=== PATIENT | female | born 1965 | race Native Hawaiian/Other Pacific Islander ===

== ENCOUNTER 2020-05-14 18:03 | Inpatient (IN) | payer OTHER ==
[~2020-05-14] VITALS: Ht 170.2 cm; Wt 115.7 kg
[2020-05-14 18:07] VITALS: BP 164/80; TEMP 102.1
[2020-05-14 19:28] LABS: PLATELET COUNT 224 K/uL (152-353)
[2020-05-14 19:40] LABS: POTASSIUM 4.1 mmol/L (3.6-5.2)
[2020-05-14 20:36] VITALS: BP 134/80; TEMP 99.2
[2020-05-15 00:40] VITALS: BP 123/70; TEMP 98.3; Ht 170.2 cm; Wt 115.7 kg
[2020-05-15 04:00] VITALS: BP 131/66; TEMP 98.9
[2020-05-15 08:00] VITALS: BP 143/67; TEMP 102.4
[2020-05-15 12:00] VITALS: BP 121/64; TEMP 99.2
[2020-05-15 16:00] VITALS: BP 166/73; TEMP 101.6
[2020-05-15] MEDS ORDERED: DIOVAN HCT320 MG/25 PO (16:44)
[2020-05-15] MEDS ORDERED: SERTRALINE HYD100 MG PO (16:45)
[2020-05-15] MEDS ORDERED: GLIM4TAB PO (16:45)
[2020-05-15] MEDS ORDERED: EUTHYROX50 MCG PO (16:46)
[2020-05-15] MEDS ORDERED: METFTAB PO (16:47)
[2020-05-15] MEDS ORDERED: VICTOZA18 MG/3 ML SC (16:47)
[2020-05-15] MEDS ORDERED: EZET10TA13 (16:51)
[2020-05-15] MEDS ORDERED: SIMV40TA57 (16:53)
[2020-05-15] MEDS ORDERED: NITROFURANTOIN100 M1 PO (16:54)
[2020-05-15 20:15] VITALS: BP 141/65; TEMP 98.8
[2020-05-16] VITALS: BP 149/67; TEMP 100.3
[2020-05-16 04:09] VITALS: BP 148/68; TEMP 101.4
[2020-05-16 04:29] LABS: PLATELET COUNT 165 K/uL (152-353)
[2020-05-16 05:27] LABS: POTASSIUM 3.5 mmol/L (3.6-5.2)
[2020-05-16 08:00] VITALS: BP 120/54; TEMP 98.1
[2020-05-16 12:00] VITALS: BP 140/69; BP 169/77; TEMP 98.1; TEMP 98.5
[2020-05-16 16:00] VITALS: BP 142/68; TEMP 100.3
[2020-05-16 20:00] VITALS: BP 136/65; TEMP 98.4
[2020-05-17] VITALS: BP 127/58; TEMP 98.4
[2020-05-17 03:58] VITALS: BP 129/66; TEMP 98.5
[2020-05-17 05:42] LABS: PLATELET COUNT 185 K/uL (152-353)
[2020-05-17 05:58] LABS: POTASSIUM 3.1 mmol/L (3.6-5.2)
[2020-05-17 08:00] VITALS: BP 137/58; TEMP 99.8
[2020-05-17 12:00] VITALS: BP 142/67; TEMP 98
[2020-05-17 16:01] VITALS: BP 138/70; TEMP 97.5
[2020-05-17 20:00] VITALS: BP 166/66; TEMP 99.5
[2020-05-18] VITALS: BP 149/58; TEMP 101.9
[2020-05-18 03:51] VITALS: BP 138/58; TEMP 101
[2020-05-18 05:44] LABS: PLATELET COUNT 193 K/uL (152-353)
[2020-05-18 06:09] LABS: POTASSIUM 3.8 mmol/L (3.6-5.2)
[2020-05-18 08:00] VITALS: BP 159/77; TEMP 99.9
[2020-05-18] MEDS ORDERED: ZITHROMAX500 MG PO (10:28)
== END 2020-05-18 11:40 | disposition home or self-care (01) | DRG 177 ==
LOC: ED 18:03 → MED/SURG 22:25
PROVIDERS: Internal Medicine; Internal Medicine Endocrinology, Diabetes & Metabolism; ADMIT Emergency Medicine
DX: U07.1 COVID-19 (principal); J18.8 Other pneumonia, unspecified organism; E11.22 Type 2 diabetes mellitus with diabetic chronic kidney disease; N18.3 Chronic kidney disease, stage 3 (moderate); E03.8 Other specified hypothyroidism; I12.9 Hypertensive chronic kidney disease with stage 1 through stage 4 chronic kidney disease, or unspecified chronic kidney disease; E78.49 Other hyperlipidemia; R19.7 Diarrhea, unspecified; F32.89 Other specified depressive episodes
CPT/HCPCS: 36415; 80053; 81000; 82948; 83605; 84443; 85027; 85379; 87040; 87502; 87635; 87651; 93005; 94760; 96360; 96365; 96366; 96367; 96372; 96375; 99284; J0360; J0456; J0696; J1650; J1815; J2405; Q9963; U0003

== ENCOUNTER 2020-07-21 07:59 | Outpatient (CLI) | payer OTHER ==
[~2020-07-21 07:59] MED LIST: ALBUTEROL0.083 % IN; BENICAR HCT1 TA2 PO; CEFD300C2 PO; CLINDAMYCIN300 MG PO; DIOVAN HCT320 MG/25 PO; EFFEXOR XR75 MG PO; EUTHYROX50 MCG PO; EZET10TA13; FLUC150T PO; GLIM2TAB PO; GLIM4TAB PO; INSUINJP SC; JENTADUETO1 TA1 PO; LEVAQUIN500 MG PO; MEDROL DOSEPAK4 MG OR; MEDROL DOSEPAK4 MG PO; METF500T PO; METFTAB PO; MOME50SP; NITROFURANTOIN100 M1 PO; NYSTATIN100000 MG PO; SERTRALINE HYD100 MG PO; SIMV20TA2 PO; SIMV40TA57; SINGULAIR4 MG OR; VENLAFAXINE75 M2 PO; VICTOZA18 MG/3 ML SC; ZITHROMAX500 MG PO; ZOLP10TA2 PO
[2020-07-21 08:39] LABS: PLATELET COUNT 311 K/uL (152-353)
== END 2020-07-21 20:53 | disposition home or self-care (01) ==
LOC: LABW 07:59
PROVIDERS: ATTEND Internal Medicine
DX: E11.22 Type 2 diabetes mellitus with diabetic chronic kidney disease (principal); N18.30 Chronic kidney disease, stage 3 unspecified; E03.8 Other specified hypothyroidism; R53.83 Other fatigue; E53.8 Deficiency of other specified B group vitamins
CPT/HCPCS: 36415; 80053; 81000; 82306; 82330; 82570; 82607; 82746; 83036; 83735; 83970; 84100; 84155; 84439; 84443; 85027; 87077; 87086; 87088; 87186

== ENCOUNTER 2020-11-08 07:38 | Outpatient (CLI) | payer OTHER ==
[2020-11-08 08:12] LABS: PLATELET COUNT 268 K/uL (152-353)
[2020-11-08 08:21] LABS: POTASSIUM 3.1 mmol/L (3.6-5.2)
== END 2020-11-08 19:33 | disposition home or self-care (01) ==
LOC: LABW 07:38
PROVIDERS: ATTEND Internal Medicine
DX: E11.22 Type 2 diabetes mellitus with diabetic chronic kidney disease (principal); N18.31 Chronic kidney disease, stage 3a; E03.8 Other specified hypothyroidism; R82.998 Other abnormal findings in urine
CPT/HCPCS: 36415; 80053; 81000; 82306; 82330; 82570; 83036; 83735; 83970; 84100; 84155; 84439; 84443; 85027; 87077; 87086; 87088; 87186

== ENCOUNTER 2020-11-28 09:23 | Outpatient (CLI) | payer OTHER | END 2020-11-28 20:44 | disposition home or self-care (01) | LOC: LABW 09:23 | PROVIDERS: ATTEND Internal Medicine Endocrinology, Diabetes & Metabolism | DX: E11.65 Type 2 diabetes mellitus with hyperglycemia (principal) | CPT/HCPCS: 36415; 80061 ==

== ENCOUNTER 2021-05-17 14:29 | Outpatient (CLI) | payer OTHER ==
[2021-05-17 15:48] LABS: PLATELET COUNT 345 K/uL (152-353)
[2021-05-17 15:59] LABS: POTASSIUM 3.5 mmol/L (3.6-5.2)
== END 2021-05-17 20:39 | disposition home or self-care (01) ==
LOC: LABW 14:29
PROVIDERS: ATTEND Internal Medicine
DX: N18.31 Chronic kidney disease, stage 3a (principal); R82.998 Other abnormal findings in urine; E11.9 Type 2 diabetes mellitus without complications
CPT/HCPCS: 80053; 81000; 82330; 82570; 83036; 83735; 84100; 84155; 85027; 87077; 87086; 87088; 87186

== ENCOUNTER 2021-11-21 07:36 | Outpatient (CLI) | payer OTHER ==
[2021-11-21 08:36] LABS: POTASSIUM 3.9 mmol/L (3.6-5.2)
== END 2021-11-21 18:58 | disposition home or self-care (01) ==
LOC: LABW 07:36
PROVIDERS: ATTEND Internal Medicine
DX: E11.22 Type 2 diabetes mellitus with diabetic chronic kidney disease (principal); N18.31 Chronic kidney disease, stage 3a; E03.8 Other specified hypothyroidism
CPT/HCPCS: 36415; 80053; 83036; 84439; 84443